=== PATIENT | male | born 1955 | race Hispanic/Latino ===

== ENCOUNTER 2020-04-16 15:36 | Emergency (ER) | payer BC ==
[2020-04-16] MEDS ORDERED: CEFAZOLIN/SWI 2gm 2 GM/20 ML SYR IVP ONE (16:00)
[2020-04-16] MEDS ORDERED: LIDOCAINE 1% MPF 30 ML VIAL ONE (16:01)
[2020-04-16] MEDS ORDERED: TETANUS & DIPHTHERIA TOX,ADULT 0.5 ML VIAL ONE (16:39)
--- NOTE | 2020-04-16 16:41 | RAD REPORT ---
EXAM DESCRIPTION: RAD - Hand Left 3 View - 04/16/2020 4:34 pm CLINICAL HISTORY: PAIN COMPARISON: No comparisons FINDINGS: Amputation is noted involving the distal fifth finger and distal phalanx. Mildly impacted fracture is seen involving the middle phalanx of the second finger. Bony remodeling of the distal sha ft of the fourth metacarpal.
[2020-04-16 17:21] LABS: Absolute Lymphocytes (CBC) 1.2 K/uL (0.7-4.9); Basophils % 0.8 % (0-1.3); Hematocrit 40.1 % (39.6-49.0); Lymphocytes % 10.2 % (15.3-44.8)
[2020-04-16 17:38] LABS: Albumin 3.6 g/dL (3.4-5.0); Bilirubin Total 0.4 mg/dL (0.2-1.0); Potassium 3.8 mmol/L (3.5-5.1); Protein, Total 7.7 g/dL (6.4-8.2)
--- NOTE | 2020-04-16 17:44 | EDPHYS ---
Physician Documentation [facility] Name: Bird Walton Age: 64 yrs Sex: Male : 1955 Arrival Date: 04/16/2020 Time: 15:38 Bed 2 Private MD: ED Physician John Flores HPI: 04/16 16:26 This 64 yrs old Male presents to ER via Ambulatory with complaints of Cut pm1 finger,finger laceration. 16:26 Onset: The symptoms/episode began/occurred just prior to arrival. pm1 16:30 The patient or guardian reports Amputation of finger and lacerations on finger. The pm1 complaints affect the right hand. Context: The problem was sustained at work. 16:30 Modifying factors: The symptoms are alleviated by pressure to area. Associated signs pm1 and symptoms: Associated signs and symptoms: Pertinent negatives: nausea, vomiting, Dizziness. Severity of symptoms: in the emergency department the symptoms have improved, bleeding improved with pressure dressing. The patient has not experienced similar symptoms in the past. Patient was working on armando a vehicle. He was working on the armando rope and it got caught around his left hand. Presenting with amputation of the distal tip of left fourth finger from the DIP, lacerations to left second and third fingers. Patient brought the amputated tip of his finger. Historical: - Allergies: 15:52 No Known Allergies; ca1 - PMHx: 15:52 Hypertension; ca1 - Immunization history:: Adult Immunizations up to date, Last tetanus immunization: unknown. - Social history:: Smoking status: . ROS: 16:30 Constitutional: Negative for fever, chills, and weight loss, Cardiovascular: Negative pm1 for chest pain, palpitations, and edema, Respiratory: Negative for shortness of breath, cough, wheezing, and pleuritic chest pain, Abdomen/GI: Negative for abdominal pain, nausea, vomiting, diarrhea, and constipation. 16:30 MS/extremity: Positive for injury or acute deformity, amputation of tip of left fourth finger, lacerations to second and third left fingers. 16:30 Skin: Positive for laceration and amputation as noted on extremity section. 16:30 All other systems are negative. Exam: 16:30 Constitutional: This is a well developed, well nourished patient who is awake, alert, pm1 and in no acute distress. Head/Face: Normocephalic, atraumatic. Neck: Trachea midline, no thyromegaly or masses palpated, and no cervical lymphadenopathy. Supple, full range of motion without nuchal rigidity, or vertebral point tenderness. No Meningismus. 16:30 Cardiovascular: Exam negative for acute changes, Rate: normal, Rhythm: regular, Pulses: no pulse deficits are appreciated. 16:30 Respiratory: Exam negative for acute changes, respiratory distress, shortness of breath. 16:30 Musculoskeletal/extremity: Extremities: grossly normal except: noted in the left ring finger: Amputation of tissue of distal phalanx with the whole nail. Dislocation of PIP, noted in the left middle finger: laceration, no evidence of decreased ROM, deformity, noted in the left index finger: laceration, swelling. Vital Signs: 15:50 BP 194 / 108; Pulse 102; Resp 16; Temp 97(TE); Pulse Ox 95% on R/A; Weight 86.18 kg ca1 (R); Height 5 ft. 5 in. (165.10 cm) (R); Pain 10/10; 16:40 BP 162 / 75; Pulse 89; Resp 16; Pulse Ox 96% on R/A; tw2 17:34 BP 157 / 84; Pulse 85; Resp 17; Pulse Ox 98% on R/A; tw2 18:40 BP 144 / 79; Pulse 81; Resp 17; Pulse Ox 97% on R/A; tw2 15:50 Body Mass Index 31.62 (86.18 kg, 165.10 cm) ca1 Harmony Coma Score: 15:45 Eye Response: spontaneous(4). Verbal Response: oriented(5). Motor Response: obeys tw2 commands(6). Total: 15. Trauma Score (Adult): 15:45 Eye Response: spontaneous(1); Verbal Response: oriented(1); Motor Response: obeys tw2 commands(2); Systolic BP: > 89 mm Hg(4); Respiratory Rate: 10 to 29 per min(4); Saira Score: 15; Trauma Score: 12 MDM: 15:48 Patient medically screened. pm1 16:53 Data reviewed: vital signs. Data interpreted: Pulse oximetry: on room air is 96 %. pm1 Interpretation: normal. Counseling: I had a detailed discussion with the patient and/or guardian regarding: the historical points, exam findings, and any diagnostic results supporting the discharge/admit diagnosis, radiology results, the need to transfer to another facility, [facility] does not immediately have the required specialist. 04/16 16:12 Order name: CBC with Diff; Complete Time: 17:27 charo 04/16 16:12 Order name: Comprehensive Metabolic Panel; Complete Time: 17:59 charo 04/16 16:12 Order name: Hand Left 3 View XRAY; Complete Time: 17:27 charo 04/16 15:54 Order name: Dressing - Wound; Complete Time: 17:21 tw2 04/16 15:54 Order name: Gloves, Sterile; Complete Time: 17:00 tw2 04/16 15:54 Order name: Setup Suture Tray; Complete Time: 16:11 tw2 Administered Medications: 15:59 Drug: Marcaine (0.5 %) 30 ml {Note: by Dr. Flores.} Volume: 10 ml; Route: tw2 Infiltration; Site: affected area; 16:00 Drug: Lidocaine (1 %) 20 ml {Note: by Dr. Flores.} Volume: 20 ml; Route: tw2 Infiltration; Site: affected area; 16:25 Drug: Ancef 2 grams {Note: IVP available from pharmacy only.} Route: IVPB; Infused tw2 Over: 5 mins; Site: right antecubital; 16:30 Follow up: Response: No adverse reaction; IV Status: Completed infusion tw2 16:28 Drug: Tetanus-Diphtheria Toxoid Adult 0.5 ml {Hydraulic Operator: NEXAGE. Exp: tw2 09/01/2021. Lot #: [id number]. } Route: IM; Site: right deltoid; 17:00 Follow up: Response: No adverse reaction tw2 Disposition: 04/17 11:56 Co-signature as Attending Physician, John Flores MD I agree with the assessment and [facility] plan of care. Disposition: 04/16/20 17:43 Transfer ordered to [facility]. Diagnosis are Laceration without foreign body of left middle finger without damage to nail, Laceration without foreign body of left index finger without damage to nail, Displaced fracture of medial phalanx of left index finger. - Reason for transfer: Higher level of care. - Accepting physician is [facility] - Dr. Vyas. - Condition is Stable. - Problem is new. - Symptoms have improved. Signatures: Dispatcher [employer] EDJohn Garvey MD MD cha Marinas, Patrick, CERTIFIED OPTICIAN CERTIFIED OPTICIAN pm1 Tiffani Paz RN RN tw2 Yane Diallo RN RN ca1 Corrections: (The following items were deleted from the chart) 04/16 19:02 17:43 04/16/2020 17:43 Transfer ordered to [facility]. Diagnosis is tw2 Laceration without foreign body of left middle finger without damage to nail; Laceration without foreign body of left index finger without damage to nail; Displaced fracture of medial phalanx of left index finger. Reason for transfer: Higher level of care. Accepting physician is [facility] - Dr. Vyas. Condition is Stable. Problem is new. Symptoms have improved. pm1
--- NOTE | 2020-04-16 17:44 | ER ---
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 Bleeding controlled. Coronavirus screen: Client denies travel out of the [place] in the last 14 days. At this time, the client does not indicate any symptoms associated with coronavirus-19. Coronavirus screen: Client denies travel out of the [place] in the last 14 days. Ebola Screen: Patient negative for fever greater than or equal to 101.5 degrees Fahrenheit, and additional compatible Ebola Virus Disease symptoms Patient denies exposure to infectious person. Patient denies travel to an Ebola-affected area in the 21 days before illness onset. No symptoms or risks identified at this time. Initial Sepsis Screen: Does the patient meet any 2 criteria? No. Patient's initial sepsis screen is negative. Does the patient have a suspected source of infection? No. Patient's initial sepsis screen is negative. Risk Assessment: Do you want to hurt yourself or someone else? Patient reports no desire to harm self or others. Onset of symptoms was April 16, 2020. 15:50 Method Of Arrival: Ambulatory ca1 15:50 Acuity: BALTA 2 ca1 15:50 Care prior to arrival: Bleeding of injury controlled. Tissue collected and brought with tw2 patient. Mechanism of Injury: amputation of tip of 4th digit left hand. Trauma event details: Injury occurred in the [facility]. Historical: - Allergies: 15:52 No Known Allergies; ca1 - PMHx: 15:52 Hypertension; ca1 - Immunization history:: Adult Immunizations up to date, Last tetanus immunization: unknown. - Social history:: Smoking status: . Screenin:08 Abuse screen: Denies threats or abuse. Nutritional screening: No deficits noted. tw2 Tuberculosis screening: No symptoms or risk factors identified. Fall Risk None identified. Primary Survey: 15:45 NO uncontrolled hemorrhage observed. A: The patient is alert. A: Airway: patent. tw2 Breathing/Chest: Respiratory pattern: regular, Respiratory effort: spontaneous, unlabored, Breath sounds: clear, bilaterally. Chest inspection: symmetrical rise and fall of the chest. Circulation: Heart tones present. Skin temperature: warm, dry. Disability Alert. Exposure/Environment: There is evidence of uncontrolled external hemorrhage. Provider notified immediately. Methods to control bleeding applied. Obvious injury(ies) are noted at this time: amputation noted to 4th digit on LEFT hand, controlled with pressure dressing. 16:00 Reassessment Airway Airway Patent Breathing/Chest Respiratory pattern Regular tw2 Respiratory effort Spontaneous Unlabored Breath sounds Clear Chest inspection Symmetrical Circulation Heart tones Present Disability Alert. Secondary Survey: 16:00 HEENT: No deficits noted. Gastrointestinal: Abdomen is soft, Bowel sounds present in tw2 all quadrants. : No signs and/or symptoms were reported regarding the genitourinary system. Musculoskeletal: Amputation of Other: deformity noted to 3rd and 4th digits with amputation noted to 4th digit distal joint Capillary refill < 3 seconds. Assessment: 15:45 General: Appears in no apparent distress. obese, Behavior is calm, cooperative, tw2 appropriate for age. Pain: Complains of pain in dorsal aspect of distal phalanx of left ring finger, palmar aspect of distal phalanx of left ring finger and left ring fingernail. Neuro: Level of Consciousness is awake, alert, obeys commands, Oriented to person, place, time, situation. Cardiovascular: Heart tones S1 S2 Patient's skin is warm and dry. Respiratory: Airway is patent Respiratory effort is even, unlabored, Respiratory pattern is regular, symmetrical, Breath sounds are clear bilaterally. GI: No signs and/or symptoms were reported involving the gastrointestinal system. Abdomen is round non-distended, obese, Bowel sounds present X 4 quads. : No signs and/or symptoms were reported regarding the genitourinary system. EENT: No signs and/or symptoms were reported regarding the EENT system. Derm: No signs and/or symptoms reported regarding the dermatologic system. Musculoskeletal: Range of motion: intact in all extremities. Injury Description: Amputation sustained to dorsal aspect of distal phalanx of left ring finger and palmar aspect of distal phalanx of left ring finger is complete, was sustained less than 30 minutes ago. 15:56 Reassessment: providers Dr. Flores and Jordon Rdz RETORT OR CONDENSER PRESS OPERATOR at bedside at this time, nerve tw2 block administered, bleeding controlled by sutures and compression dressing. 16:40 Reassessment: Patient appears in no apparent distress at this time. Patient and/or tw2 family updated on plan of care and expected duration. Pain level reassessed. Patient is alert, oriented x 3, equal unlabored respirations, skin warm/dry/pink. 17:00 Reassessment: provider BRIGHT Julien at bedside reassessing injury at this time. tw2 17:40 Reassessment: Patient appears in no apparent distress at this time. Patient and/or tw2 family updated on plan of care and expected duration. Pain level reassessed. Patient is alert, oriented x 3, equal unlabored respirations, skin warm/dry/pink. 18:40 Reassessment: Patient appears in no apparent distress at this time. Patient and/or tw2 family updated on plan of care and expected duration. Pain level reassessed. Patient is alert, oriented x 3, equal unlabored respirations, skin warm/dry/pink. 18:45 Reassessment: Gave report to [facility]. Information from the SBAR was given. All rb1 questions asked and answered. Vital Signs: 15:50 BP 194 / 108; Pulse 102; Resp 16; Temp 97(TE); Pulse Ox 95% on R/A; Weight 86.18 kg ca1 (R); Height 5 ft. 5 in. (165.10 cm) (R); Pain 10/10; 16:40 BP 162 / 75; Pulse 89; Resp 16; Pulse Ox 96% on R/A; tw2 17:34 BP 157 / 84; Pulse 85; Resp 17; Pulse Ox 98% on R/A; tw2 18:40 BP 144 / 79; Pulse 81; Resp 17; Pulse Ox 97% on R/A; tw2 15:50 Body Mass Index 31.62 (86.18 kg, 165.10 cm) ca1 Saira Coma Score: 15:45 Eye Response: spontaneous(4). Verbal Response: oriented(5). Motor Response: obeys tw2 commands(6). Total: 15. Trauma Score (Adult): 15:45 Eye Response: spontaneous(1); Verbal Response: oriented(1); Motor Response: obeys tw2 commands(2); Systolic BP: > 89 mm Hg(4); Respiratory Rate: 10 to 29 per min(4); [place] Score: 15; Trauma Score: 12 ED Course: 15:38 Patient arrived in ED. mr 15:45 Bed in low position. Call light in reach. Adult w/ patient. Pulse ox on. NIBP on. tw2 15:47 Tiffani Paz RN is Primary Nurse. tw2 15:48 Jordon No NP is PHCP. pm1 15:48 John Flores MD is Attending Physician. pm1 15:52 Triage completed. ca1 15:52 Arm band placed on right wrist. ca1 15:56 Patient maintains SpO2 saturation greater than 95% on room air. Thermoregulation: warm tw2 blanket given to patient. 16:00 Inserted saline lock: 20 gauge in right antecubital area, using aseptic technique. tw2 ,using aseptic technique. [employer]. 16:00 Assist provider with nerve block of palmar aspect of distal phalanx of left ring finger tw2 and dorsal aspect of distal phalanx of left ring finger Set up for procedure. Performed by John Flores MD Patient tolerated well. 16:30 Pillow given. tw2 16:35 Hand Left 3 View XRAY In Process Unspecified. EDMS 17:00 Wound care: was soaked in normal saline solution, dressed with 4X4s, cling, secured tw2 with tape per Jordon No NP. 17:13 CBC with Diff Sent. tw2 17:13 Comprehensive Metabolic Panel Sent. tw2 18:13 initiated transfer to [facility].admin approval given by alondra bernabe. bd 19:02 Patient transferred, IV remains in place. tw2 Administered Medications: 15:59 Drug: Marcaine (0.5 %) 30 ml {Note: by Dr. Flores.} Volume: 10 ml; Route: tw2 Infiltration; Site: affected area; 16:00 Drug: Lidocaine (1 %) 20 ml {Note: by Dr. Flores.} Volume: 20 ml; Route: tw2 Infiltration; Site: affected area; 16:25 Drug: Ancef 2 grams {Note: IVP available from pharmacy only.} Route: IVPB; Infused tw2 Over: 5 mins; Site: right antecubital; 16:30 Follow up: Response: No adverse reaction; IV Status: Completed infusion tw2 16:28 Drug: Tetanus-Diphtheria Toxoid Adult 0.5 ml {Cashier Credit: [employer]. Exp: tw09/01/2021. Lot #: [id number]. } Route: IM; Site: right deltoid; 17:00 Follow up: Response: No adverse reaction tw2 Output: 16:30 Urine: 400ml (Voided); Total: 400ml. tw2 Outcome: 17:43 ER care complete, transfer ordered by MD. pm1 19:02 Patient left the ED. tw2 19:02 Transferred by ground EMS to [facility]. tw2 19:02 Condition: stable 19:02 Instructed on the need for transfer. 19:02 Patient's length of stay in the Emergency Department was greater than 2 hours. 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 Bleeding controlled. ca1 16:07 15:45 Injury Description: Amputation sustained to dorsal aspect of distal phalanx of tw2 left ring finger and palmar aspect of distal phalanx of left ring finger is complete, tw2 04/17 11:53 04/16 15:56 Reassessment: providers at bedside at this time. tw2 tw2
[2020-04-16 19:28] VITALS: TEMP 97
[2020-04-16 19:31] VITALS: BP 157/84; O2SAT 98
== END 2020-04-16 19:02 | disposition short-term general hospital (02) ==
LOC: ER 15:36
DX: S61.211A Laceration without foreign body of left index finger without damage to nail, initial encounter (principal); S62.621A Displaced fracture of middle phalanx of left index finger, initial encounter for closed fracture; W45.8XXA Other foreign body or object entering through skin, initial encounter; Y93.89 Activity, other specified; Y92.89 Other specified places as the place of occurrence of the external cause; Y99.8 Other external cause status; Z23 Encounter for immunization; I10 Essential (primary) hypertension
CPT/HCPCS: 85025; 36415; 80053; 73130; 90471; 90714; 96374; 99285; J0690